=== PATIENT | female | born 1955 | race Caucasian/White ===

== ENCOUNTER 2023-06-15 10:02 | Emergency (ER) | payer OTHER ==
[2023-06-15 10:37] VITALS: BMI 19.1
[2023-06-15] MEDS ORDERED: ACETAMINOPHEN 325 MG TABLET (FP) PO ONE (11:38)
[2023-06-15] MEDS ORDERED: ACETAMINOPHEN 325 MG TABLET (FP) ONE (11:47)
[2023-06-15 12:24] LABS: BASO % 0.8 % (0-2.0); EOS % 0.8 % (0-4.5); HEMOGLOBIN 12.3 GM/dL (10.7-15.3); LYMPH % 21.7 % (8-40); MCH 28.5 pg (25.7-33.7); MCHC 33.3 g/dl (32.0-36.0); MEAN CELL VOLUME 85.8 fl (80-96); MEAN PLT VOLUME 7.9 fl (7.5-11.1); MONO % 5.8 % (3.8-10.2); NEUT % 70.9 % (42.8-82.8); PLATELET COUNT 388 10^3/uL (134-434); RBC 4.31 M/mm3 (3.60-5.2); RDW 13.6 % (11.6-15.6); WHITE BLOOD COUNT 10.6 K/mm3 (4.0-10.0)
[2023-06-15 12:47] LABS: POTASSIUM 4.5 mmol/L (3.5-5.1)
[2023-06-15 12:49] LABS: CALCIUM 9.1 mg/dL (8.5-10.1)
[2023-06-15 12:50] LABS: ALBUMIN 3.3 g/dl (3.4-5.0); BLOOD UREA NITROGEN 11.9 mg/dL (7-18)
[2023-06-15 12:55] LABS: BILIRUBIN,TOTAL 0.3 mg/dL (0.2-1)
[2023-06-15 12:56] LABS: CREATININE 0.7 mg/dL (0.55-1.3)
[2023-06-15 12:58] LABS: TOT PROT 7.7 g/dl (6.4-8.2)
[2023-06-15 13:07] LABS: ERYTHROCYTE SEDIMENTATION RATE 55 mm/hr (0-30)
[2023-06-15] MEDS ORDERED: KETOROLAC TROMETHAMINE 30 MG/1 ML VIAL IVPUSH ONE (14:22)
[2023-06-15] MEDS ORDERED: AMPICILLIN NA/SULBACTAM NA 3 GM in SODIUM CHLORIDE 100 ML IVPB ONE (14:22)
[2023-06-15] MEDS ORDERED: KETOROLAC TROMETHAMINE 15 MG/ML VIAL ONE (14:30)
[2023-06-15] MEDS ORDERED: AMPICILLIN NA/SULBACTAM NA 3 GM VIAL ONE (14:30)
[2023-06-15 16:28] VITALS: PULSE 74; TEMP 97.3
[2023-06-15 17:26] VITALS: BP 130/78; RESP 18
== END 2023-06-15 17:20 | disposition short-term general hospital (02) ==
LOC: JER 10:02
PROC: 3E03329 Introduction of Other Anti-infective into Peripheral Vein, Percutaneous Approach (ICD-10-PCS; principal; 2023-06-15)
PROC: 3E0333Z Introduction of Anti-inflammatory into Peripheral Vein, Percutaneous Approach (ICD-10-PCS; 2023-06-15)
DX: S61.551A Open bite of right wrist, initial encounter (principal); L02.413 Cutaneous abscess of right upper limb; W55.01XA Bitten by cat, initial encounter; Z20.822 Contact with and (suspected) exposure to COVID-19
CPT/HCPCS: 36415; 73110-TC-RT-FY; 73130-TC-RT-FY; 80053; 85025; 85651; 86140; 87040; 87635; 99285-25